=== PATIENT | male | born 1940 | race Caucasian/White ===

== ENCOUNTER 2016-08-17 07:04 | Day surgery (SDC) | payer MEDICARE, SELFPAY ==
[~2016-08-17] VITALS: Ht 180.3 cm; Wt 104.7 kg
--- NOTE | ~2016-08-17 | ECH ---
Transthoracic Echocardiography Report (TTE) Demographics Patient Name ANGEL ELIAS Date of Study 08/17/2016 Patient Number [id number] Visit Number [id number] Date of 1940 Room Number Accession Number [id number] Gender Male Age 76 year(s) Referring King Moises Nicholson MD Director Digital Catalogue Aniyah Jauregui Physician RDCS Physician Interpreting Mike MONTALVO Ethologist Physician Ben Supervising Ordering Physician King Moises Nicholson MD, MD/MLP Nurse Stress Historical Guide Conclusions Contractility Score Summary Normal Left Ventricular contractility was noted. Summary Technically adequate exam. The estimated left ventricular ejection fraction is 55%. Mild concentric left ventricular hypertrophy. Normal right ventricle structure with decreased function. The right atrium is mildly dilated. There is trivial aortic regurgitation by color Doppler. Recommendation The patient will be given the results of this study by the physician who ordered the exam. Procedure Type of Study TTE procedure:Echo Complete SF. Procedure Date Date: 08/17/2016 Start: 08:28 AM Technical Quality: Adequate visualization Indications:End of life Pacemaker, Coronary artery disease and paroxysmal a-fib. Appropriate Use Criteria: 9 Height: 72 inches Weight: 230 pounds BSA: 2.26 m Rhythm: Paced HR: 65 bpm BP: 153/87 mmHg Allergies - No known allergies. M-Mode/2D Measurements LV Diastolic Dimension: 4.6 cm LV Systolic Dimension: 3.76 cm LV Septum Diastolic: 1.14 cm LV PW Diastolic: 1.12 cm AO Root Dimension: 3.59 cm Cardiac Output: 2.89 l/min Cardiac Index: 1.28 l/min*m RV Diastolic Dimension: 3.74 cm LA volume index: 32 ml/m LVOT: 2.22 cm LVOT VTI: 11.5 cm RV Base: 3.3 cm LV Stroke volume: 44.49 ml RV Mid: 2.4 cm LV Stroke volume index: 19.69 ml/m TAPSE: 1.2 cm TDI-S': 8 cm/s Doppler Measurements AV Peak Velocity: 0.6 m/s MV Peak E-Wave: 0.66 m/s AV Peak Gradient: 1.44 mmHg AV Mean Gradient: 0.79 mmHg MV P1/2t: 67.2 msec LVOT Peak Velocity: 0.53 m/s AV Area (Continuity):4.94 cm MV Area (PHT): 3.28 cm TR Velocity:2.19 m/s PV Peak Velocity: 0.66 m/s TR Gradient:19.18 mmHg PV Peak Gradient: 1.76 mmHg Estimated RAP:3 mmHg Estimated PASP: 22.18 mmHg Estimated RVSP: 22 mmHg E' Septal Velocity: 0.07 m/s E' Lateral Velocity: 0.1 m/s RA Area: 22.72 cm Findings Left Ventricle The left ventricle is normal in size . Mild concentric left ventricular hypertrophy. Diastolic function indeterminate due to patient's arrhythmia. Right Ventricle Normal right ventricle structure with decreased function. Device lead noted in the right ventricle. Left Atrium Normal left atrial size. Right Atrium The right atrium is mildly dilated. Device lead seen in the right atrium. Mitral Valve Normal mitral valve structure and function. Mild mitral regurgitation by color Doppler. Aortic Valve The aortic valve is mildly sclerotic. There is trivial aortic regurgitation by color Doppler. Tricuspid Valve Normal tricuspid valve structure and function. Mild tricuspid regurgitation by color Doppler. Normal pulmonary pressures. Pulmonic Valve Normal pulmonic valve structure and function. Trivial pulmonic valve regurgitation by color Doppler. Pericardial Effusion No evidence of pericardial effusion. Miscellaneous Visualized portions of the aortic root and ascending aorta appear normal in size. Pleural Effusion No evidence of pleural effusion. Contractility Score LV regional wall motion:(0-Non visualized 1-Normal 2-Hypokinesis 3-Akinesis 4-Dyskinesis 5-Aneurysm) Signature
--- NOTE | ~2016-08-17 | EEP ---
Pacemaker Generator Change/Upgrade Report Demographics Patient Name CURT ORTIZ Gender Male Patient Number [id number] Race Visit Number [id number] Ethnicity Corporate ID Room Number Accession Number [id number] Height 182.88 cm Date of 1940 Weight 104.33 kg Age 76 year(s) BSA 2.26 m Referring Physician King Moises Nicholson MD BMI 31.19 kg/m Abimbola Jordan MD Implanting Physician King Moises Nicholson MD Date of Study 08/17/2016 Assisting Physician Performing Physician King Moises Nicholson MD The procedure was explained in detail to the patient. Risks, complications and alternative treatments were reviewed. Written consent was obtained. Medications reviewed with patient prior to procedure. Conclusions Implantable Device Summary Summary Successful Generator Exchange. Recommendations A wound check should be performed in 7 days. Complications No complications. Procedure Procedure Type Pacemaker:Generator Exchange, PM Generator exchange w/2 leads Indications Generator CATIA. Procedure Description The patient was brought to the electrophysiology laboratory in a fasting state. A baseline ECG was recorded. Surface ECG leads, intracardiac electrograms, blood pressure measurements, and pulse oximety signals were monitored. A grounding pad was placed on the left thigh. A defibrillator was configured to deliver shocks via self-adhesive lateral defibrillator pads. Conscious sedation was administered. The upper chest area was prepped and draped in a sterile fashion. 2 % Lidocaine with bupivacaine was was infused underneath the old scar. An incision was made over the old scar and blunt dissection down to the area of the capsule surrounding the pacemaker was performed. The capsule was incised sharply and dissected free. The pulse generator was removed. The lead(s) were then disconnected. The lead(s) were tested. The lead was then connected to the new pulse generator. The pocket was then flushed with antibiotic solution. Hemostasis was obtained. The pulse generator was then placed into the pacemaker pocket. The pacemaker generator captured normally. The incision was closed. It was closed using 2-0 Vicryl for the deep and intermediate layer and 4-0 Vicryl for the subcuticular layer. A sterile dressing was applied. The patient tolerated the procedure well and was returned to the pre/post procedural nursing unit in stable condition. Devices and Leads Devices + + + +---------+---------+ +--------+ !Identification!Action !Location !Device !Serial # !Implant !Comments! ! ! ! !name ! !date ! ! + + + +---------+---------+ +--------+ !New implant !Implanted !Left !ESSENTIO ![id number] !08/17/2016! ! ! ! !Subclavicular!MRI DR ! ! ! ! ! ! ! !L111 ! ! ! ! + + + +---------+---------+ +--------+ !Old implant !Explanted !Left !Medtronic![id number]! ! ! ! ! !Subclavicular! ! ! ! ! + + + +---------+---------+ +--------+ Device Programming Bradycardia Zone +-------+--------+--------+--------+ + +------+--------+ !Pacing !Mode !Lower !Upper !Paced AV !Sensed AV !PVARP !VRP (ms)! !Mode !Switch !Rate !Rate !Interval !Interval !(ms) ! ! ! ! !(ppm) !(ppm) !(ms) !(ms) ! ! ! +-------+--------+--------+--------+ + +------+--------+ !DDDR !On !60 !130 !210 !180 !320 !250 ! +-------+--------+--------+--------+ + +------+--------+ Medical History Allergies - No known allergies:. Admission Data Admission Date: 08/17/2016 Admission Time: 07:04 Insurance Payors:Medicare. Hospital Status:Outpatient. Procedure Data Procedure Date:08/17/2016Start:09:40End:10:15 Estimated blood loss:10 ml. Procedure Medications Order and Administration + + +---------+---------+ !Time !Medication !Dosage !Route ! + + +---------+---------+ !08/17/2016 09:29 !Ancef !2 g !I.V. ! + + +---------+---------+ !08/17/2016 09:29 !Versed !2 mg !I.V. ! + + +---------+---------+ !08/17/2016 09:29 !Fentanyl !50 mcg !I.V. ! + + +---------+---------+ !08/17/2016 09:29 !Sodium Chloride !10 ml !I.V. ! + + +---------+---------+ !08/17/2016 09:39 !Versed !1 mg !I.V. ! + + +---------+---------+ !08/17/2016 09:39 !Fentanyl !25 mcg !I.V. ! + + +---------+---------+ !08/17/2016 09:44 !Oxygen !4 l/min !NC ! + + +---------+---------+ !08/17/2016 09:53 !Versed !1 mg !I.V. ! + + +---------+---------+ !08/17/2016 09:53 !Fentanyl !25 mcg !I.V. ! + + +---------+---------+ !08/17/2016 09:54 !Ancef !1 g !Pocket ! + + +---------+---------+ Signatures
== END 2016-08-17 12:10 | disposition home or self-care (01) ==
LOC: SSS 07:04 → CARD 08:00 → EDSTATUS 08:00 → SSS 08:00
PROC: 0JPT0PZ Removal of Cardiac Rhythm Related Device from Trunk Subcutaneous Tissue and Fascia, Open Approach (ICD-10-PCS; principal; 2016-08-17)
PROC: 02HL3JZ Insertion of Pacemaker Lead into Left Ventricle, Percutaneous Approach (ICD-10-PCS; principal; 2016-08-17)
PROC: 02H73JZ Insertion of Pacemaker Lead into Left Atrium, Percutaneous Approach (ICD-10-PCS; principal; 2016-08-17)
PROC: 0JH606Z Insertion of Pacemaker, Dual Chamber into Chest Subcutaneous Tissue and Fascia, Open Approach (ICD-10-PCS; principal; 2016-08-17)
PROC: 02PA0MZ Removal of Cardiac Lead from Heart, Open Approach (ICD-10-PCS; principal; 2016-08-17)
DX: Z45.010 Encounter for checking and testing of cardiac pacemaker pulse generator [battery] (principal); E11.22 Type 2 diabetes mellitus with diabetic chronic kidney disease; I12.9 Hypertensive chronic kidney disease with stage 1 through stage 4 chronic kidney disease, or unspecified chronic kidney disease; N18.9 Chronic kidney disease, unspecified; I48.0 Paroxysmal atrial fibrillation; I25.10 Atherosclerotic heart disease of native coronary artery without angina pectoris; Z79.82 Long term (current) use of aspirin; Z79.899 Other long term (current) drug therapy